=== PATIENT | male | born 1935 | race Caucasian/White ===

== ENCOUNTER → 2016-10-10 | Outpatient (CLI) | payer OTHER ==
--- NOTE | 2016-10-10 11:49 | DIAGNOSTIC IMAGING REPORT ---
PROCEDURE: US ART LOWER EXT WITH PATRICIA-B/L INDICATION: Claudication/atherosclerosis, diabetic, history of smoking, prior left toe amputation. TECHNIQUE: Color Doppler duplex imaging of the lower extremity arterial system was performed bilaterally. Pre exercise ABIs were acquired. COMPARISON: None. FINDINGS: RIGHT LOWER EXTREMITY: ABIs: Pre exercise posterior tibial: Noncompressible Pre exercise dorsalis pedis: Noncompressible VESSELS/ WAVEFORMS: Triphasic arterial inflow. Biphasic to minimally triphasic flow through the popliteal artery. Monophasic arterial flow in the calf arteries. Heavy, heavy calcification of calf arteries resulting in diminutive, irregular arterial caliber. Scattered coarse calcification in the femoral and popliteal arteries without a discrete focal stenosis. RIGHT LOWER EXTREMITY PEAK SYSTOLIC VELOCITIES: External iliac: 63 cm/second. Common femoral artery: 57 cm/second. Profunda femoral artery: 39 cm/second. Proximal superficial femoral artery: 66 cm/second. Mid superficial femoral artery: 71 cm/second. Distal superficial femoral artery: 75 cm/second. Popliteal artery: 98 cm/second. Proximal posterior tibial artery: 84 cm/second. Proximal anterior tibial artery: 21 cm/second. Peroneal artery: 121 cm/second. Distal posterior tibial artery: 144 cm/second. Dorsalis pedis artery: 237 cm/second. LEFT LOWER EXTREMITY: ABIs: Pre exercise posterior tibial: Noncompressible Pre exercise dorsalis pedis: Noncompressible VESSELS/ WAVEFORMS: Triphasic arterial inflow. Monophasic to barely triphasic flow through the popliteal artery. Monophasic flow in the calf arteries. There is spectral broadening of the distal posterior tibial artery wave form. Heavy arterial calcification and calf arteries resulting in an arterial irregularity and diminutive caliber. Scattered atherosclerotic calcification in the proximal artery. LEFT LOWER EXTREMITY PEAK SYSTOLIC VELOCITIES: External iliac: 65 cm/second. Common femoral artery: 56 cm/second. Profunda femoral artery: 42 cm/second. Proximal superficial femoral artery: 57 cm/second. Mid superficial femoral artery: 63 cm/second. Distal superficial femoral artery: 68 cm/second. Popliteal artery: 52 cm/second. Proximal posterior tibial artery: 110 cm/second. Proximal anterior tibial artery: 92 cm/second. Peroneal artery: Not well seen. Distal posterior tibial artery: 255 cm/second. Dorsalis pedis artery: 22 cm/second. IMPRESSION: 1. 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 2. Elevated velocities in the distal calf arteries bilaterally, most significant in the left distal posterior tibial artery, likely secondary to diffuse arterial narrowing. 3. Focal arterial stenosis was not visible on the current study. 4. No obvious arterial inflow disease visible.
== END ==
LOC: US SRH 08:31
DX: I70.203 Unspecified atherosclerosis of native arteries of extremities, bilateral legs (principal)

== ENCOUNTER 2016-11-19 12:38 | Outpatient (CLI) | payer OTHER ==
--- NOTE | 2016-11-19 16:25 | DIAGNOSTIC IMAGING REPORT ---
PROCEDURE: MG BILATERAL DIAGNOSTIC W/CAD INDICATION: Acute gynecomastia. Assess for mass. TECHNIQUE: CC and MLO views of bilateral breasts. In addition, high-resolution left breast ultrasound was performed (18 mHz). COMPARISON: None. FINDINGS: MAMMOGRAM: Computer-aided detection applied. Moderate increased asymmetric parenchymal density in the retroareolar region of the left breast. Right breast is mildly dense. There are a few scattered dystrophic calcifications. No evidence of mass or suspicious calcification. BREAST ULTRASOUND: There is increased hypoechoic tissue in the retroareolar region of the left breast. No evidence of mass or cyst IMPRESSION: 1. Asymmetric gynecomastia of the left breast. 2. Findings discussed with the patient. RESULT CODE: 2- Benign finding(s). A. A negative report should not delay biopsy if a dominant or clinically suspicious mass is present. 10-15% of cancers are not identified by x-ray. B. A negative report may reinforce clinical impression. C. Adenosis and dense breasts may obscure an underlying neoplasm. D. False positive reports average 6-10%. E.. A yearly screening mammogram is recommended. A reminder letter will be scheduled.
== END 2016-11-19 23:00 ==
LOC: MAM SRH 12:38
DX: N62 Hypertrophy of breast (principal)